=== PATIENT | male | born 1945 | race Caucasian/White ===

== ENCOUNTER 2017-05-30 09:28 | Emergency (ER) | payer OTHER, BC ==
[2017-05-30 09:29] VITALS: BMI 31.6
[2017-05-30 10:04] VITALS: BP 136/84; PULSE 88; RESP 22; TEMP 98.2; O2SAT 95
--- NOTE | 2017-05-30 10:20 | RAD ---
HISTORY: COUGH COMPARISON: 08/09/2015 TECHNIQUE: Chest PA and lateral FINDINGS: LUNGS: No consolidation. PLEURA: No significant pleural effusion identified. No pneumothorax apparent. CARDIOVASCULAR: Normal heart size minimal tortuosity of the thoracic aorta. The previously referenced mild pulmonary venous congestion appearance of such is similar OSSEOUS STRUCTURES: No significant abnormalities. VISUALIZED UPPER ABDOMEN: Normal. OTHER FINDINGS: None. IMPRESSION: No interval consolidation Overall pulmonary vasculature is minimally increased yet similar ; mild chronic pulmonary venous congestion is possible No effusions noted
--- NOTE | 2017-05-30 10:24 | C.PDOC ---
History Of Present Illness +COUGH X 3 DAYS. +PLEURITIC PAIN "DUE TO TOO MUCH COUGHING". NO FEVER, SOB/MARQUEZ. DENIES SMOKING, HO ASTHMA EXAM NARD NONTOXIC HEENT NEG LUNGS CTA B/L ?RHONCHI R SIDE NO RETRACTION REMAINDER NEG Time Seen by Provider: 05/30/17 10:06 Chief Complaint (Nursing): Cough, Cold, Congestion History Per: Patient History/Exam Limitations: no limitations Onset/Duration Of Symptoms: Days (3) Current Symptoms Are (Timing): Still Present Associated Symptoms: denies: Fever Past Medical History Reviewed: Historical Data, Nursing Documentation, Vital Signs Vital Signs: Last Vital Signs Temp 98.2 F 05/30/17 09:56 Pulse 88 05/30/17 09:56 Resp 22 05/30/17 09:56 BP 136/84 05/30/17 09:56 Pulse Ox 95 05/30/17 10:24 - Medical History PMH: HTN, Kidney Stones, Chronic Kidney Disease Surgical History: Appendectomy, Back Surgery Family History: States: No Known Family Hx - Social History Hx Alcohol Use: No Hx Substance Use: No - Immunization History Hx Tetanus Toxoid Vaccination: No Hx Influenza Vaccination: No Hx Pneumococcal Vaccination: No Review Of Systems Except As Marked, All Systems Reviewed And Found Negative. Constitutional: Negative for: Fever Cardiovascular: Positive for: Other ((+) pleuritic pain) Respiratory: Positive for: Cough. Negative for: Shortness of Breath Gastrointestinal: Negative for: Vomiting Physical Exam - Physical Exam Appears: Non-toxic, No Acute Distress, Other ((-) NARD) Skin: Warm, Dry, No Rash Head: Atraumatic, Normacephalic Eye(s): bilateral: Normal Inspection, PERRL, EOMI Oral Mucosa: Moist Throat: Normal, No Erythema, No Exudate, No Drooling Lymphatic: No Adenopathy Respiratory: Rhonchi (? rhonchi right side), Other (No retractions) Gastrointestinal/Abdominal: Normal Exam, Soft, No Tenderness, No Guarding, No Rebound Neurological/Psych: Oriented x3, Normal Speech, Normal Motor ED Course And Treatment O2 Sat by Pulse Oximetry: 95 (RA) Pulse Ox Interpretation: Normal - Radiology CXR: Interpreted by Me, Viewed By Me CXR Interpretation: Yes: Infiltrates (RML) Medical Decision Making Medical Decision Making: PLAN: * CXR * Tessalon Perles PO * Toradol IM Disposition Counseled Patient/Family Regarding: Studies Performed, Diagnosis, Need For Followup, Rx Given - Disposition Referrals: YOUR,PMD [Other] Disposition: HOME/ ROUTINE Disposition Time: 10:22 Condition: IMPROVED Prescriptions: Benzonatate [Tessalon Perles] 200 mg PO TID PRN #15 sgl PRN Reason: Cough Ibuprofen [Motrin] 600 mg PO Q6 #30 tab levoFLOXacin [Levaquin] 750 mg PO DAILY #5 tab Instructions: Community Acquired Pneumonia (ED) Forms: [employer] (Mosotho) - Clinical Impression Clinical Impression: Pneumonia - Scribe Statement The provider has reviewed the documentation as recorded by the Mj Correa Provider Attestation: All medical record entries made by the Tarikibkatalina were at my direction and personally dictated by me. I have reviewed the chart and agree that the record accurately reflects my personal performance of the history, physical exam, medical decision making, and the department course for this patient. I have also personally directed, reviewed, and agree with the discharge instructions and disposition.
== END 2017-05-30 10:34 | disposition home or self-care (01) ==
LOC: C.ER 09:28
DX: J18.9 Pneumonia, unspecified organism (principal); I12.9 Hypertensive chronic kidney disease with stage 1 through stage 4 chronic kidney disease, or unspecified chronic kidney disease; N18.9 Chronic kidney disease, unspecified
CPT/HCPCS: 71020; 96372; 99283; J1885